=== PATIENT | male | born 1950 | race Caucasian/White ===

== ENCOUNTER → 2017-10-17 10:35 | Outpatient (CLI) | payer MEDICARE, OTHER, SELFPAY ==
[2017-10-17 12:21] LABS: Absolute Neutrophil Count 3.2 X10^3/uL (2.0-7.7); Basophil# 0.11 X10^3/uL; Basophil% 1.4 % (0-1); Eosinophils% 4.9 % (0-5); Hematocrit 45.7 % (40-54); Hemoglobin 15.2 g/dl (13.0-16.5); Lymphocyte % 46.8 % (19-41); Mean Corp Hgb Conc 33.3 g/gl (32-36); Mean Corpuscular Hgb 28.5 pg (27.0-32.0); Mean Corpuscular Volume 85.7 fL (80-94); Mean Platelet Vol. 10.3 fl (6.2-12.0); Monocyte# 0.51 X10^3/uL; Monocyte% 6.3 % (0-10); Neutrophil # 3.24 X10^3/uL (2.7-7.7); Neutrophil % 39.9 % (47-70); Platelet Count 244 K/mm3 (150-450); RBC Distribution Width CV 14.2 % (11.6-14.6); RBC Distribution Width SD 44.6 fl (35.1-43.9); Red Blood Count 5.33 M/mm3 (4.6-6.2); White Blood Count 8.1 K/mm3 (4.4-11.0)
[2017-10-17 12:22] LABS: Absolute Nucleated RBC Count 0.17 10^3/uL (0-5); POSITIVE COUNT NO; POSITIVE DIFFERENTIAL NO; POSITIVE MORPHOLOGY NO
[2017-10-17 12:47] LABS: ALB/GLOB Ratio 1.2 RATIO (0.9-2.4); AST(SGOT) 22 U/L (15-37); Alanine Aminotransfer ALT/SGPT 37 U/L (16-61); Albumin, Serum 4.2 g/dL (3.2-5.0); Alkaline Phosphatase 85 U/L (45-117); Anion Gap 8 (5-15); BUN 21 mg/dL (7-18); BUN/Creat Ratio 15.4 RATIO (10-20); Calcium,Total 10.1 mg/dL (8.5-10.1); Chloride 104 mmol/L (98-107); Creatinine, Serum 1.36 mg/dL (0.70-1.30); EST Glomerular Filtration Rate 56 mL/min (>60); Est Glom Filt Rate - Afr Amer 68 mL/min (>60); Globulin 3.4 g/dL (2.2-4.2); Glucose 97 mg/dL (74-106); Potassium 3.7 mmol/L (3.5-5.1); Protein, Total 7.6 g/dL (6.4-8.2); Sodium Level 139 mmol/L (136-145)
== END ==
PROVIDERS: Visit Provider Psychiatry & Neurology Neurology
DX: G35 Multiple sclerosis (principal); Z79.899 Other long term (current) drug therapy
CPT/HCPCS: 36415; 80053; 85025; 87798

== ENCOUNTER 2021-05-04 11:54 | Inpatient (IN) | payer MEDICARE, OTHER, SELFPAY ==
[2021-05-04] VITALS (7 sets, daily range): BP systolic 100–139; BP diastolic 68–79; PULSE 79–90; RESP 18–20; TEMP 36.1–37.6; O2SAT 92–96; BMI 35.2; BMI 33.0
--- NOTE | 2021-05-04 12:57 | EKG12_ITS ---
Test Reason : CONFUSON Blood Pressure : / mmHG Vent. Rate : 086 BPM Atrial Rate : 086 BPM P-R Int : 184 ms QRS Dur : 102 ms QT Int : 362 ms P-R-T Axes : 072 044 062 degrees QTc Int : 433 ms Normal sinus rhythm Normal ECG Confirmed by SAIRA BAKER, CANDACE ([id number]), market editor ROBBIE GAYTAN ([id number]) on 05/06/2021 11:10:22 AM Referred By: NATACHA Confirmed By:CANDACE CHÁVEZ MD
--- NOTE | 2021-05-04 12:58 | CT_ITS ---
STUDY: CT BRAIN WITHOUT CONTRAST REASON FOR EXAM: Male, 71 years old. Confusion, ataxia RADIATION DOSAGE (If Supplied By Facility): CTDIvol = ( 44.99 ) mGy, DLP = ( 880.47 ) mGycm TECHNIQUE: Transaxial CT imaging of the brain was performed without administration of intravenous contrast material. Individualized dose optimization techniques were used for this CT. COMPARISON: No relevant priors. FINDINGS: Normal soft tissue structures. Normal calvarium. There is mild cerebral atrophy with widening of the extra-axial spaces and ventricular dilatation. There are areas of decreased attenuation within the white matter tracts of the supratentorial brain, consistent with microvascular disease changes. Normal basal ganglia and thalami. Normal brainstem. Normal cerebellum. There is no intracranial hemorrhage. There are no findings of an acute ischemic infarction. Atherosclerotic calcification of the cavernous portions of the internal carotid arteries bilaterally. Mucosal thickening of the maxillary sinuses. Partial opacification of the ethmoid sinus. CT/Brain/Head without Contrast IMPRESSION: Chronic involutional changes of the brain. Sinusitis. Electronically Signed: Lan Weber MD at 14:07 EST , Service support ,
--- NOTE | 2021-05-04 12:59 | EDS_ITS ---
HPI History of Present Illness Chief Complaint: Confusion Onset/Context/Timing Onset: Today Context: - (noticed since he woke up) Timing: Continuous Quality: disoriented/confused Current Severity: Severe Maximum Severity: Severe Worsened by: n/a Relieved by: n/a Narrative Narrative: Patient is on day #8 of Covid via home test that was positive. Symptoms have been significant fatigue, cough, and very poor appetite/p.o. intake; woke up this morning disoriented which is new. He has had several minor falls without injury because he has been off balance when walking, he has history of MS, and he rarely has flareups. He gets every 6 month infusions, his last one was 2 or 3 weeks ago, along with influenza and Covid booster shots, which made him start feeling off balance after that. Pulse ox 92% at home at the lowest which was this morning. [facility] Medical History (Updated 05/04/21 @ 16:[address] Segun Zazueta MD) HTN (hypertension) Multiple sclerosis Home Medications fluoxetine 20 mg PO DAILY 05/04/21 [History Last Taken Unknown] olmesartan-hydrochlorothiazide 1 tab PO DAILY 05/04/21 [History Last Taken Unknown] tamsulosin 0.4 mg PO DAILY 05/04/21 [History Last Taken Unknown] Allergy/AdvReac Type Severity Reaction Status Date / Time No Known Allergies Allergy Verified 05/04/21 11:54 Social History Smoking Status: Former smoker ROS ROS ED Review of Systems ROS Unobtainable: other Details: Limited due to confusion Constitutional Constitutional ED: Reports fatigue, fever(s) and malaise; Denies body ache(s) Eyes Eyes: Denies change in vision or diplopia ENT ENT ED: Reports nasal congestion; Denies rhinorrhea Cardiovascular Cardiovascular: Denies chest pain or palpitations Respiratory/Chest Respiratory/Chest: Reports cough; Denies dyspnea Gastrointestinal Gastrointestinal: Denies abdominal pain, diarrhea, nausea or vomiting Musculoskeletal Musculoskeletal: Denies back pain or neck pain Integumentary Denies abscess or rash Neurologic Neurologic: Reports as per HPI, confusion, lack of coordination and other Details: Patient cannot answer whether he has numbness, tingling, weakness anywhere focally ; Denies headache(s) Psychiatric Psychiatric: Denies anxiety or suicidal thoughts EXAM Physical Exam Const Vital Signs: 05/04/21 11:56 05/04/21 13:00 05/04/21 14:00 Temperature 97.0 F L 98.1 F 98 F Temperature Source Temporal Temporal Temporal Pulse Rate 90 87 81 Respiratory Rate 20 H 19 H 20 H Blood Pressure 100/73 139/74 H 133/74 H Blood Pressure Mean 82 95 93 Pulse Ox 92 96 95 Oxygen Delivery Method Room Air Room Air Room Air 05/04/21 15:00 Temperature 98 F Temperature Source Oral Pulse Rate 79 Respiratory Rate 18 Blood Pressure 123/78 H Blood Pressure Mean 93 Pulse Ox 96 Oxygen Delivery Method Room Air Positive well nourished and well developed General Appearance ED: well developed and NAD HEENT Reports moist mucous membranes normocephalic and atraumatic Eyes PERRL and EOMs intact bilaterally Neck full ROM, no lymphadenopathy, supple and no meningeal signs Resp normal respiratory effort and clear to auscultation bilaterally Cardio regular rate, regular rhythm and no murmurs Rate: Negative for tachycardic GI non-tender and non-distended Auscultation: normoactive bowel sounds Palpation: soft Back/Spine no CVA tenderness General Back: other FROM Extremity normal to inspection General Extremety ED: Negative for edema, pulses abnormal or tenderness General Extremity: Negative for edema or pulses abnormal Neuro CN's II-XII intact bilaterally and no focal motor deficits Neuro Narrative: When actively performing sensory exam bilaterally simultaneously, patient cannot answer whether it feels symmetric or not at many sensory levels. Normal [id number] and [id number] bilaterally within limit s of exam, patient is generally weak but has no focal motor deficits. Sensorium / Orientation: awake, alert, oriented to person and orientation impaired Motor Exam: strength 5/5 throughout Skin no rashes or lesions noted and no wounds MDM MDM MDM Narrative Medical decision making narrative: Patient's Covid test did return positive. Other than mild dehydration and a nonspecifically elevated lactate, testing does not explain his disorientation/delirium. His oxygen levels are good and his other vital signs are stable and unremarkable. He was hydrated here with a liter of fluid. Afterwards he said that he felt a little better, however he was so weak that she was not even able to stand at the bedside and still confused. Lab Data Attestation: I reviewed the patient's lab results. Labs: Laboratory Results - last 24 hr 01/04/22 01/04/22 01/04/22 13:33 13:33 13:33 WBC 4.2 L RBC 5.66 Hgb 16.2 Hct 48.6 MCV 85.9 MCH 28.6 MCHC 33.3 RDW Std Deviation 41.0 RDW Coeff of Earlene 13.0 Plt Count 218 MPV 10.3 Immature Gran % (Auto) 0.700 Neut % (Auto) 76.6 H Lymph % (Auto) 12.2 L Drew % (Auto) 10.3 H Eos % (Auto) 0.0 Baso % (Auto) 0.2 Absolute Neuts (auto) 3.2 Absolute Lymphs (auto) 0.51 L Nucleated RBC % 0 Differential Comment COMMENT Diff Path Review May foll Sodium 135 L Potassium 3.4 L Chloride 95 L Carbon Dioxide 28.0 Anion Gap 12 BUN 25 H Creatinine 1.51 H Estim Creat Clear Calc 47.67 Est GFR (MDRD) Af Amer 59 L Est GFR (MDRD) Non-Af 49 L BUN/Creatinine Ratio 16.6 Glucose 102 Lactic Acid 2.7 H* Calcium 10.3 H Total Bilirubin 0.50 AST 37 ALT 35 Alkaline Phosphatase 65 Troponin I High Sens 10 Total Protein 7.8 Albumin 3.7 Globulin 4.1 Albumin/Globulin Ratio 0.9 Urine Color Urine Clarity Urine pH Ur Specific [place] Urine Protein Urine Glucose (UA) Urine Ketones Urine Occult Blood Urine Nitrite Urine Bilirubin Urine Urobilinogen Ur Leukocyte Esterase Urine RBC Urine WBC Ur Squamous Epith Cells Urine Bacteria Urine Mucus 05/04/21 13:50 WBC RBC Hgb Hct MCV MCH MCHC RDW Std Deviation RDW Coeff of Earlene Plt Count MPV Immature Gran % (Auto) Neut % (Auto) Lymph % (Auto) Drew % (Auto) Eos % (Auto) Baso % (Auto) Absolute Neuts (auto) Absolute Lymphs (auto) Nucleated RBC % Differential Comment Diff Path Review Sodium Potassium Chloride Carbon Dioxide Anion Gap BUN Creatinine Estim Creat Clear Calc Est GFR (MDRD) Af Amer Est GFR (MDRD) Non-Af BUN/Creatinine Ratio Glucose Lactic Acid Calcium Total Bilirubin AST ALT Alkaline Phosphatase Troponin I High Sens Total Protein Albumin Globulin Albumin/Globulin Ratio Urine Color Yellow Urine Clarity Clear Urine pH 5.0 Ur Specific [place] 1.025 Urine Protein 30 H Urine Glucose (UA) Normal Urine Ketones 5 H Urine Occult Blood 10 H Urine Nitrite Negative Urine Bilirubin Negative Urine Urobilinogen Normal Ur Leukocyte Esterase Negative Urine RBC 0 SEEN Urine WBC 0 SEEN Ur Squamous Epith Cells 0 SEEN Urine Bacteria 0 SEEN Urine Mucus 0 SEEN Radiography Diagnostic Testing: Clinical Impression(s) from Imaging Studies Brain CT 05/04/21 12:58 IMPRESSION: Chronic involutional changes of the brain. Sinusitis. Electronically Signed: Lan Weber MD at 14:07 EST , Service support , Chest X-Ray 05/04/21 13:55 IMPRESSION: Hyperinflation. No acute abnormality is seen. Electronically Signed: Lan Weber MD at 14:08 EST , Service support , EKG Initial EKG: Attestation: I personally reviewed and interpreted this EKG as follows: Interpretation: Sinus Rhythm and No Acute Injury Pattern Discharge Plan Dx/Rx/DC Orders Clinical Impression: COVID-19, Dehydration, Delirium, Declining functional status Disposition Disposition: Acute Care [facility]
[2021-05-04] MEDS: 0.9% Normal Saline 1,000 ML 999 ML IV (13:39)
[2021-05-04 13:50] LABS: Absolute Lymphocyte Count 0.51 X10^3/uL (0.83-4.51); Absolute Neutrophil Count 3.2 X10^3/uL (2.0-7.7); Basophil# 0.01 X10^3/uL; Basophil% 0.2 % (0-1); Hematocrit 48.6 % (40-54); Hemoglobin 16.2 g/dL (13.0-16.5); Lymphocyte # 0.51 X10^3/ul (0.83-4.51); Lymphocyte % 12.2 % (19-41); Mean Corp Hgb Conc 33.3 g/dL (32-36); Mean Corpuscular Hgb 28.6 pg (27.0-32.0); Mean Corpuscular Volume 85.9 fL (80-94); Mean Platelet Vol. 10.3 fl (6.2-12.0); Monocyte# 0.43 X10^3/uL; Monocyte% 10.3 % (0-10); NRBC Flagged by Analyzer 0 % (0-5); Neutrophil # 3.19 X10^3/uL (2.7-7.7); Neutrophil % 76.6 % (47-70); POSITIVE DIFFERENTIAL YES; Platelet Count 218 K/mm3 (150-450); Red Blood Count 5.66 M/mm3 (4.6-6.2); White Blood Count 4.2 K/mm3 (4.4-11.0)
--- NOTE | 2021-05-04 13:55 | RAD_ITS ---
STUDY: X-RAY CHEST REASON FOR EXAM: Male, 71 years old. Lethargy and confusion. TECHNIQUE: Single AP portable view of the chest. COMPARISON: None. FINDINGS: There is hyperinflation of the lungs consistent with chronic obstructive lung disease (COPD). There is no demonstrated pleural abnormality. Normal size heart. Normal mediastinum and cory. Normal visualized pulmonary arteries. There is atherosclerotic calcification of the aortic arch with tortuosity. There are degenerative changes of the visualized thoracic spine. Normal visualized ribs, clavicles, and shoulders. There is no demonstrated abnormality of the visualized soft tissue structures of the upper abdomen. RAD/Chest 1 View (Portable) IMPRESSION: Hyperinflation. No acute abnormality is seen. Electronically Signed: Lan Weber MD at 14:08 EST , Service support ,
[2021-05-04 13:57] LABS: Bacteria 0 SEEN /hpf (None Seen); Mucous, Urine 0 SEEN /hpf (<or=2+); Red Blood Cells-Urine 0 SEEN /hpf (0-5); Squamous Epithelial Cells - UA 0 SEEN /hpf (0-5); White Blood Cells 0 SEEN /hpf (0-5)
[2021-05-04 14:01] LABS: Differential Indicated SCAN CRITERIA MET
[2021-05-04 14:08] LABS: ALB/GLOB Ratio 0.9 RATIO (0.9-2.4); AST(SGOT) 37 U/L (15-37); Alanine Aminotransfer ALT/SGPT 35 U/L (16-61); Albumin, Serum 3.7 g/dL (3.2-5.0); Alkaline Phosphatase 65 U/L (45-117); Anion Gap 12 (5-15); BUN 25 mg/dL (7-18); BUN/Creat Ratio 16.6 RATIO (10-20); Calcium,Total 10.3 mg/dL (8.5-10.1); Chloride 95 mmol/L (98-107); Creatinine, Serum 1.51 mg/dL (0.70-1.30); EST Glomerular Filtration Rate 49 mL/min (>60); Est Glom Filt Rate - Afr Amer 59 mL/min (>60); Estimated Creatinine Clearance 47.67 ml/min; Globulin 4.1 g/dL (2.2-4.2); Glucose 102 mg/dL (74-106); Potassium 3.4 mmol/L (3.5-5.1); Protein, Total 7.8 g/dL (6.4-8.2); Sodium Level 135 mmol/L (136-145); Troponin-I HS 10 pg/mL (3.0-78.0)
[2021-05-04 14:11] LABS: Color, Urine Yellow (Yellow); Glucose, Dipstick Normal (Normal); Ketone-Dipstick 5 mg/dl (Negative); Leukocyte Esterase-Dipstick Negative /ul (Negative); Nitrite-Dipstick Negative (Negative); Occult Blood-Urine 10 /ul (Negative); Protein-Dipstick 30 mg/dl (Negative); Specific Gravity, Urine 1.025 (1.002-1.030); Urine Bilirubin Dipstick Negative (Negative); Urine Clarity Clear (Clear); Urine Urobilinogen Normal (Normal)
[2021-05-04 14:26] LABS: Lactic Acid 2.7 mmol/L (0.4-1.9)
--- NOTE | 2021-05-04 16:18 | ED.RN ---
PT UNABLE TO AMBULATE, VERY UNSTEADY. ALSO HAS DIFFICULTY FOLLOWING SIMPLE COMMANDS.
--- NOTE | 2021-05-04 17:37 | PCM.HP.STD ---
HPI - General General Date of Admission: 05/04/21 HPI Narrative ROMEO HANDY, is a 71 M who presents with confusion. Patient has a history of multiple sclerosis and is been feeling sick for about a week. Patient had known contact with someone at a [employer] green party who later tested positive for COVID-19. He subsequent was tested positive for COVID-19. Since then he has just been weak and then more recently has been confused and delirious. He was also very weak today as well. His was concerned and brought into the emergency room. Patient work-up in the emergency room clued head CT as well as chest x-ray that was unremarkable. Lab work significant only for lactic acid of 2.7 and a creatinine of 1.5. Patient did receive IV fluids. The hospital service was contacted for admission. Patient has been vaccinated for COVID-19 and did have his booster. Patient does take Ocrevus for MS every 6 months and took that shortly before his booster shot. Patient was so confused today he did not know his own name. [facility] Medical History HTN (hypertension) Multiple sclerosis Home Medications fluoxetine 20 mg PO DAILY 05/04/21 [History Last Taken Unknown] olmesartan-hydrochlorothiazide 1 tab PO DAILY 05/04/21 [History Last Taken Unknown] tamsulosin 0.4 mg PO DAILY 05/04/21 [History Last Taken Unknown] Allergy/AdvReac Type Severity Reaction Status Date / Time No Known Allergies Allergy Verified 05/04/21 11:54 Social History Smoking Status: Former smoker ROS ROS Narrative Unable to get satisfactory family social history due to his confusion Review of Systems ROS Unobtainable: due to encephalopathy Vital Signs Vital Signs Vital Signs: 05/04/21 11:56 05/04/21 13:00 05/04/21 14:00 Temperature 36.1 C L 36.7 C 36.6 C Temperature Source Temporal Temporal Temporal Pulse Rate 90 87 81 Respiratory Rate 20 H 19 H 20 H Blood Pressure 100/73 139/74 H 133/74 H Blood Pressure Mean 82 95 93 Pulse Ox 92 96 95 Oxygen Delivery Method Room Air Room Air Room Air 05/04/21 15:00 05/04/21 16:51 Temperature 36.6 C 36.6 C Temperature Source Oral Temporal Pulse Rate 79 90 Respiratory Rate 18 19 H Blood Pressure 123/78 H 122/77 H Blood Pressure Mean 93 92 Pulse Ox 96 96 Oxygen Delivery Method Room Air Room Air Weight Weight: 111.13 kg Body Mass Index (BMI) 35.2 Physical Exam Const Constitutional Narrative: Follows commands. Oriented to self. Place is [place] knew the year but did not know the month. HEENT normocephalic and head/scalp atraumatic Eyes PERRL and EOMs intact bilaterally Eyes Narrative: No scleral icterus Neck no lymphadenopathy Neck Narrative: No thyromegaly Resp normal respiratory effort, no retractions, no use of accessory muscles and clear to auscultation bilaterally Cardio regular rate, regular rhythm, S1 normal heart sound and S2 normal heart sound GI normal to inspection, nondistended, normoactive bowel sounds, soft to palpation, non-tender and non-distended Extremity normal to inspection and full ROM Skin no rashes or lesions noted and no wounds Neuro CN's II-XII intact bilaterally, moves all extremities and no focal motor deficits Sensorium / Orientation: oriented to person; Negative for oriented to place or oriented to time Results Lab / Micro Data Attestation: I reviewed the patient's lab results. Result Diagrams: 05/04/21 13:33 05/04/21 13:33 Labs: Laboratory Results - last 24 hr 05/04/21 13:33: WBC 4.2 L, RBC 5.66, Hgb 16.2, Hct 48.6, MCV 85.9, MCH 28.6, MCHC 33.3, RDW Std Deviation 41.0, RDW Coeff of Earlene 13.0, Plt Count 218, MPV 10.3, Immature Gran % (Auto) 0.700, Neut % (Auto) 76.6 H, Lymph % (Auto) 12.2 L, [place] % (Auto) 10.3 H, Eos % (Auto) 0.0, Baso % (Auto) 0.2, Absolute Neuts (auto) 3.2, Absolute Lymphs (auto) 0.51 L, Nucleated RBC % 0, Differential Comment COMMENT, Diff Path Review August foll 05/04/21 13:33: Sodium 135 L, Potassium 3.4 L, Chloride 95 L, Carbon Dioxide 28.0, Anion Gap 12, BUN 25 H, Creatinine 1.51 H, Estim Creat Clear Calc 47.67, Est GFR (MDRD) Af Amer 59 L, Est GFR (MDRD) Non-Af 49 L, BUN/Creatinine Ratio 16.6, Glucose 102, Calcium 10.3 H, Total Bilirubin 0.50, AST 37, ALT 35, Alkaline Phosphatase 65, Troponin I High Sens 10, Total Protein 7.8, Albumin 3.7, Globulin 4.1, Albumin/Globulin Ratio 0.9 05/04/21 13:33: Lactic Acid 2.7 H* 05/04/21 13:50: Urine Color Yellow, Urine Clarity Clear, Urine pH 5.0, Ur Specific [place] 1.025, Urine Protein 30 H, Urine Glucose (UA) Normal, Urine Ketones 5 H, Urine Occult Blood 10 H, Urine Nitrite Negative, Urine Bilirubin Negative, Urine Urobilinogen Normal, Ur Leukocyte Esterase Negative, Urine RBC 0 SEEN, Urine WBC 0 SEEN, Ur Squamous Epith Cells 0 SEEN, Urine Bacteria 0 SEEN, Urine Mucus 0 SEEN Micro: Microbiology 05/04/21 13:20 Nasal Secretion SARS-CoV-2 Antigen (Rapid) - Final SARS-CoV-2 (COVID 19) Radiology Impression Brain CT 05/04/21 12:58 IMPRESSION: Chronic involutional changes of the brain. Sinusitis. Electronically Signed: Lan Weber MD at 14:07 EST , Service support , Chest X-Ray 05/04/21 13:55 IMPRESSION: Hyperinflation. No acute abnormality is seen. Electronically Signed: Lan Weber MD at 14:08 EST , Service support , Assessment & Plan Assessment/Plan (1) COVID-19: (2) Dehydration: (3) Delirium: PLAN: 1. Acute delirium Likely multifactorial: Due to the patient's underlying MS plus to being dehydrated as well as ayanna COVID-19. On any potentiating medications Give patient additional fluids Check an MRI of the brain to make sure there is no new demyelinating lesions. Infectious work-up thus far has been unremarkable. 2. Acute COVID-19 Onset of symptoms was April 26 Patient is not hypoxic and other than his confusion and some general malaise is otherwise asymptomatic No indication for steroids at this point nor remdesivir given that he is not hypoxic. May reconsider initiating his medications if patient respiratory status worsens Patient has been vaccinated and has had his booster. 3. Dehydration Creatinine up a little bit from 2018. Cannot qualify this is acute kidney injury. Get patient on her liter of IV fluids 4. Lactic acidosis Unclear significance Patient clinically not septic at this time 5. VTE prophylaxis Lovenox 6. Debility: PT OT evaluate and treat Patient may require long-term facility at discharge. Patient's was inquiring about getting home health care services. Told her that we can have home health care but if he does require more therapy services and that would be hiring aids which would be [id number] expenses. Charges/Coding Visit Charges Inpatient E&M: 85991 Init Hosp L3
[2021-05-04 17:46] LABS: Reflex Lactate? Y
--- NOTE | 2021-05-04 17:54 | MRI_ITS ---
STUDY: MRI BRAIN WITH AND WITHOUT CONTRAST REASON FOR EXAM: Male, 71 years old. delirium. -- history of MS. TECHNIQUE: Standardized multiplanar fat and water weighted pulse sequences were obtained. IV 20cc dotarem was administered for the contrast portion of the examination. COMPARISON: 12/02/2016 FINDINGS: Examination is degraded by motion artifact. There is moderate cerebral atrophy with widening of the extra-axial spaces and ventricular dilatation. There are periventricular and subcortical white matter hyperintensities without evidence of restricted diffusion are enhancement to suggest active demyelination. Right midbrain and pontine lesions are noted as well. There is mild thinning of the corpus callosum. There are greater than 5 lesions associated with demyelinating vacuolization burned-out plaque. Normal bilateral basal ganglia. Normal thalami. There is no extra-axial fluid accumulation. There is no enhancing intra-axial or extra-axial abnormality. Normal sella turcica, pituitary gland, infundibular stalk, optic chiasm and hypothalamus. Normal tectal plate and pineal gland. MRI/Brain W/WO Contrast IMPRESSION: No acute intracranial abnormality. Moderate supratentorial and infratentorial plaque. Electronically Signed: Silvia Hernandez MD at 15:02 EST Tel , Service support ,
[2021-05-04] MEDS: 0.9% Normal Saline 1,000 ML 150 ML IV (18:33)
--- NOTE | 2021-05-04 18:43 | NURSING ---
Addendum entered by Ladonna Hernandez 05/05/21 17:49: Brea reports that pt has not gotten flu vaccine this year and does not want pt to get at this time Original Note: is not sure if pt recieved flu shot this year, states to check with pt PCP office, Adria Granger at [facility] [phone]. please follow up on 05/05
--- NOTE | 2021-05-04 18:51 | PCS.PANDOC ---
PANDEMIC DOCUMENTATION INITIATED: Date: 12/14/2020 Time: 190
[2021-05-04] MEDS: 0.9% Saline Lock 10 ML Syringe IV (20:43)
[2021-05-05] VITALS (10 sets, daily range): BP systolic 104–135; BP diastolic 58–74; PULSE 77–92; RESP 16–18; TEMP 37.1–37.8; O2SAT 88–95
[2021-05-05 07:16] LABS: Absolute Lymphocyte Count 0.66 X10^3/uL (0.83-4.51); Absolute Neutrophil Count 2.6 X10^3/uL (2.0-7.7); Basophil# 0.01 X10^3/uL; Basophil% 0.3 % (0-1); Eosinophil# 0.01 X10^3/uL; Eosinophils% 0.3 % (0-5); Hemoglobin 14.1 g/dL (13.0-16.5); Lymphocyte # 0.66 X10^3/ul (0.83-4.51); Lymphocyte % 17.4 % (19-41); Mean Corp Hgb Conc 33.6 g/dL (32-36); Mean Corpuscular Hgb 28.7 pg (27.0-32.0); Mean Corpuscular Volume 85.5 fL (80-94); Mean Platelet Vol. 10.5 fl (6.2-12.0); Monocyte# 0.55 X10^3/uL; Monocyte% 14.5 % (0-10); NRBC Flagged by Analyzer 0 % (0-5); Neutrophil # 2.55 X10^3/uL (2.7-7.7); Platelet Count 199 K/mm3 (150-450); RBC Distribution Width CV 13.2 % (11.6-14.6); Red Blood Count 4.91 M/mm3 (4.6-6.2); White Blood Count 3.8 K/mm3 (4.4-11.0)
[2021-05-05 07:37] LABS: ALB/GLOB Ratio 0.8 RATIO (0.9-2.4); AST(SGOT) 34 U/L (15-37); Alanine Aminotransfer ALT/SGPT 28 U/L (16-61); Alkaline Phosphatase 55 U/L (45-117); Anion Gap 9 (5-15); BUN 21 mg/dL (7-18); BUN/Creat Ratio 16.8 RATIO (10-20); Calcium,Total 9.5 mg/dL (8.5-10.1); Chloride 101 mmol/L (98-107); Creatinine, Serum 1.25 mg/dL (0.70-1.30); EST Glomerular Filtration Rate 61 mL/min (>60); Est Glom Filt Rate - Afr Amer 74 mL/min (>60); Estimated Creatinine Clearance 57.59 ml/min; Globulin 3.6 g/dL (2.2-4.2); Glucose 98 mg/dL (74-106); Potassium 3.7 mmol/L (3.5-5.1); Protein, Total 6.6 g/dL (6.4-8.2); Sodium Level 135 mmol/L (136-145)
--- NOTE | 2021-05-05 10:02 | CASEMGMT ---
ANNE-MARIE BARBA in to pt room to complete assessment. Pt sitting up in chair on RA in no distress. Pt oriented to self only. Pt agreeable to calling to complete assessment. ANNE-MARIE BARBA to call .
[2021-05-05] MEDS: Enoxaparin 40 MG/0.4 ML Syringe SC (10:19)
[2021-05-05] MEDS: FLUoxetine 20 MG Capsule PO (10:19)
[2021-05-05] MEDS: Tamsulosin HCl 0.4 MG Capsule PO (10:19)
[2021-05-05] MEDS: hydroCHLOROthiazide 12.5mg 12.5 MG PO (10:19)
--- NOTE | 2021-05-05 11:18 | CASEMGMT ---
ANNE-MARIE BARBA Assessment: TC to pt for initial transition planning/care coordination assessment. RN FREDA introduced self and role at [facility], pt voices understanding and consents to assessment. Care providers, pharmacy, and demographics verified/updated. Admitting Dx: COVID 19, debility PCP:Adria Lucio Specialists:Elida uro; Stewart, eye Dr; Nils, neuro [facility]erred [facility]acy[facility] Insurance: [employer], Commercial other Prescription Benefit: yes LW/HPOA: Pt will check. She is not sure if they have a LW/DPOA. LNOK: Brea Boswell, Living Arrangements: Pt lives with in a two story house with 8 steps that are rocks to enter. states they live [place] a hill. There are rails to use. She states pt normally is I in ADL's but not now. She states pt is able to make meals, do laundry and go up and down steps normally. Transportation: Pt drives self locally but not at night. Pt transports pt to medical appts. DME/HHC/SNF: Pt has a CPAP at home, pulse ox and cane that he uses once in awhile. Pt also has a walker available. Pt denies hx of HHC and SNF stays. Pt was tested for COVID at [facility]. Pt is negative. Pt states she has already checked with [facility] for bed availability and acceptance of her . She states this is where she would like him to go and denies need for a list of facilities with star ratings. Pt states no further concerns/needs. CM to follow. Advised pt to ask CM if any further question/concerns/needs arise, voices understanding. Pt Goal: [facility], second choice [facility] Plan: SNF
--- NOTE | 2021-05-05 12:14 | CASEMGMT ---
Addendum entered by Beatriz Acosta 05/05/21 13:47: Social Work SW did fax referral over to [facility], sent an email letting Lisseth know the referral is coming. SW called to let her know that SW did call all of the other facilities in and near [place] and none are taking COVID patients, so a referral was sent to [facility]. states understanding. SW will keep her informed as to whether or not pt is accepted. GRACE Dawson Original Note: Social Work As per , pt will need SNF, and [facility] is 's first choice. SW called [facility], pt's positive COVID test here is dated 05/04/21. If pt has another positive test from a facility in the community, then they can use that test. SW called , pt used a home test and was positive on that, did not have a test in the community. SW explained that unfortunately, [facility] will not be able to take pt. SW explained to the only facility in the area taking positive COVID patients is [facility]. asked about the other facilities in [place]. SW explained will call to see if any will accept COVID positive pts. If they will not, is okay with a referral to [facility]. SW called [place], [facility], and [facility], none will take positive COVID patients. SW will send a referral to [facility] later today, PT/OT are still pending. GRACE Dawson
[2021-05-05] MEDS: LORazepam 1 MG Tablet PO (12:36)
[2021-05-05 13:28] LABS: Pathologist Review Reviewed
[2021-05-05] MEDS: Losartan Potassium 100 MG Tablet PO (15:26)
--- NOTE | 2021-05-05 18:12 | PCM.PN.HOSP ---
Subjective Subjective Patient denies any acute issues at this time. He unfortunately has required the addition of supplemental oxygen and is currently on 2 L with oxygen saturations in the mid nineties on supplemental oxygen. He did drop into the upper eighties on room air. Per discussion with nursing he has been confused but pleasant and oriented to self. Objective Data Objective Data Vital Signs: Vital Signs Temp Pulse Resp BP Pulse Ox 99.3 F H 80 16 133/65 H 89 05/05/21 15:30 05/05/21 15:30 05/05/21 15:30 05/05/21 15:30 05/05/21 17:19 Oxygen Flow Rate (L/min) 2 Oxygen Delivery Method Room Air Weight: 104.281 kg Body Mass Index (BMI) 33.0 Intake & Output: Intake and Output for Last 24 Hours 05/03/21 05/04/21 05/05/21 23:59 23:59 23:59 Intake Total 1000 / 1000 1000 / 1000 Balance 1000 / 1000 1000 / 1000 Lab / Micro Data Result Diagrams: 05/05/21 05:54 05/05/21 05:51 Labs: Laboratory Results - last 24 hr 05/04/21 13:33: Diff Path Review Reviewed 05/04/21 19:45: Lactic Acid 1.0 05/05/21 05:51: Sodium 135 L, Potassium 3.7, Chloride 101, Carbon Dioxide 25.0, Anion Gap 9, BUN 21 H, Creatinine 1.25, Estim Creat Clear Calc 57.59, Est GFR (MDRD) Af Amer 74, Est GFR (MDRD) Non-Af 61, BUN/Creatinine Ratio 16.8, Glucose 98, Calcium 9.5, Total Bilirubin 0.50, AST 34, ALT 28, Alkaline Phosphatase 55, Total Protein 6.6, Albumin 3.0 L, Globulin 3.6, Albumin/Globulin Ratio 0.8 L 05/05/21 05:54: WBC 3.8 L, RBC 4.91, Hgb 14.1, Hct 42.0, MCV 85.5, MCH 28.7, MCHC 33.6, RDW Std Deviation 41.0, RDW Coeff of Earlene 13.2, Plt Count 199, MPV 10.5, Immature Gran % (Auto) 0.500, Neut % (Auto) 67.0, Lymph % (Auto) 17.4 L, [place] % (Auto) 14.5 H, Eos % (Auto) 0.3, Baso % (Auto) 0.3, Absolute Neuts (auto) 2.6, Absolute Lymphs (auto) 0.66 L, Nucleated RBC % 0 Micro: Microbiology 05/04/21 13:20 Nasal Secretion SARS-CoV-2 Antigen (Rapid) - Final SARS-CoV-2 (COVID 19) Radiography Diagnostic Testing: Radiology Impression Brain MRI 05/04/21 17:54 IMPRESSION: No acute intracranial abnormality. Moderate supratentorial and infratentorial plaque. Electronically Signed: Silvia Hernandez MD at 15:02 EST Tel , Service support , Physical Exam Const alert, no apparent distress and well nourished Constitutional Narrative: Obese upper middle-aged white male sitting up in a chair at the bedside, appears comfortable, nontoxic, no signs of extremis or distress, confused but cooperative Orientation / Consciousness: confused and disoriented Exam Limitations: altered mental status Nutritional Appearance: obese HEENT head/scalp atraumatic, moist oral mucous membranes and oropharynx normal HEENT Narrative: Dentition is good, Mallampati is 3, no thrush Head and Scalp: normocephalic Resp normal respiratory effort, no retractions, no use of accessory muscles and clear to auscultation bilaterally Resp Narrative: Diffusely diminished with few crackles in bilateral bases that improved with deep breathing Auscultation: crackles; Negative for rales, rhonchi or wheezes Cardio regular rate, regular rhythm, S1 normal heart sound, S2 normal heart sound, no murmurs, no rub, no gallops, no clicks and no JVD GI normal to inspection, nondistended, normoactive bowel sounds, soft to palpation, non-tender and non-distended Extremity no clubbing, cyanosis or edema Peripheral Pulses: Yes pulses 2+ throughout Neuro CN's II-XII intact bilaterally, moves all extremities and no focal motor deficits Neuro Narrative: Generalized weakness noted, patient follows all commands but slow to respond, speech is slow and inconsistent however Sensorium / Orientation: awake and alert Psych Psych Narrative: Affect is somewhat flat Assessment & Plan Assessment/Plan (1) COVID-19: (2) Acute respiratory failure with hypoxia: (3) Dehydration: (4) Declining functional status: (5) Delirium: (6) Hyponatremia: PLAN: Acute hypoxic respiratory failure secondary to COVID-19 -Sats were stable on presentation but now patient is requiring 2 L nasal cannula with an oxygen saturation 88 and 89% -Start Decadron day 1 of 10 -Start remdesivir day 1 of 5 -Add I-S/Pep therapy -Mobilization as able -Prone lying as able -Continue to monitor closely for decompensation -Patient has been vaccinated and boosted however he is immunocompromised secondary to treatment with Ranjitus for MS which she takes every 6 months and took that shortly before his booster shot Dehydration -Improving -Baseline serum creatinine appears to be 1.2-1.3 -On admission serum creatinine was 1.5 -Hold any further IV fluids Mild hyponatremia -Serum sodium is 134 -We will continue to monitor -Likely due to acute Covid infection Delirium/declining functional status -Suspect related to acute COVID-19 infection -PT/OT consultations -Was performed to rule out any acute exacerbation of MS and no new lesions found Multiple sclerosis -Patient on Dr. Gerard at baseline -MRI was performed given confusion and weakness and showed no evidence of active demyelination but chronic plaques are noted and there were no other acute findings BPH -Continue Flomax Hypertension -Continue HCTZ/losartan Depression -Continue Prozac -Watch sodium closely DVT prophylaxis -40 mg Lovenox daily CODE STATUS -Full code verified on admission Charges/Coding Visit Charges Inpatient E&M: 22727 Subs Hosp L2
[2021-05-05] MEDS: 0.9% Saline Lock 10 ML Syringe IV (20:31)
[2021-05-05] MEDS: dexAMETHasone 4 MG Tablet 6 MG PO (20:31)
[2021-05-05] MEDS: Acetaminophen 325 MG Tablet 650 MG PO (20:38)
[2021-05-06] VITALS (7 sets, daily range): BP systolic 104–134; BP diastolic 62–82; PULSE 66–74; RESP 18; TEMP 36.6–36.9; O2SAT 93–95
[2021-05-06 06:56] LABS: Hematocrit 41.5 % (40-54); Hemoglobin 13.9 g/dL (13.0-16.5); Mean Corp Hgb Conc 33.5 g/dL (32-36); Mean Corpuscular Hgb 28.8 pg (27.0-32.0); Mean Corpuscular Volume 85.9 fL (80-94); Mean Platelet Vol. 10.2 fl (6.2-12.0); Platelet Count 206 K/mm3 (150-450); RBC Distribution Width CV 13.2 % (11.6-14.6); RBC Distribution Width SD 41.9 fl (35.1-43.9); Red Blood Count 4.83 M/mm3 (4.6-6.2); White Blood Count 2.5 K/mm3 (4.4-11.0)
[2021-05-06 07:31] LABS: ALB/GLOB Ratio 0.8 RATIO (0.9-2.4); AST(SGOT) 28 U/L (15-37); Alanine Aminotransfer ALT/SGPT 26 U/L (16-61); Albumin, Serum 2.8 g/dL (3.2-5.0); Alkaline Phosphatase 50 U/L (45-117); Anion Gap 8 (5-15); BUN 23 mg/dL (7-18); Calcium,Total 10.2 mg/dL (8.5-10.1); Chloride 102 mmol/L (98-107); Creatinine, Serum 1.21 mg/dL (0.70-1.30); EST Glomerular Filtration Rate 63 mL/min (>60); Est Glom Filt Rate - Afr Amer 77 mL/min (>60); Estimated Creatinine Clearance 59.49 ml/min; Globulin 3.7 g/dL (2.2-4.2); Glucose 151 mg/dL (74-106); Potassium 4.2 mmol/L (3.5-5.1); Protein, Total 6.5 g/dL (6.4-8.2); Sodium Level 136 mmol/L (136-145)
[2021-05-06] MEDS: Tamsulosin HCl 0.4 MG Capsule PO (08:49)
[2021-05-06] MEDS: FLUoxetine 20 MG Capsule PO (08:49)
[2021-05-06] MEDS: dexAMETHasone 4 MG Tablet 6 MG PO (08:49)
[2021-05-06] MEDS: Enoxaparin 40 MG/0.4 ML Syringe SC (08:49)
--- NOTE | 2021-05-06 10:07 | CASEMGMT ---
Addendum entered by Beatriz Acosta 05/06/21 11:53: SW did fax PT/OT to [facility]. GRACE Dawson Original Note: Social Work SW spoke w/pt's , let her know that pt was accepted at [facility] and they have a bed for pt when ready. She inquired if the home COVID test was good enough for pt's PCP to order medication for him, would it be good enough for the [facility] to count COVID days from the date of the home COVID test, which was the . SW explained that unfortunately no, they need a documented COVID test. She inquired if pt could have another COVID test here and if that was negative, would that work. SW explained that unfortunately, the nursing homes still go by the initial documented positive COVID test, and we don't usually retest. states understanding. is agreeable to [facility] for pt at discharge. SW did call [facility], confirmed that they do indeed need to go by a documented COVID test and cannot go by a home test. SW emailed Lisseth at [facility] to let her know that as per physician, pt is not ready for discharge yet today. GRACE Dawson
--- NOTE | 2021-05-06 14:02 | PN.HOSP_ITS ---
Subjective Subjective Patient is doing much better today. Delirium has resolved and he is alert and oriented x3. He denies any significant shortness of breath. He is having some intermittent cough with no sputum production. Objective Data Objective Data Vital Signs: Vital Signs Temp Pulse Resp BP Pulse Ox 98.2 F 70 18 134/62 H 93 05/06/21 13:09 05/06/21 13:09 05/06/21 13:09 05/06/21 13:09 05/06/21 13:09 Oxygen Flow Rate (L/min) 4 Oxygen Delivery Method Nasal Cannula Weight: 104.281 kg Body Mass Index (BMI) 33.0 Intake & Output: Intake and Output for Last 24 Hours 05/04/21 05/05/21 05/06/21 23:59 23:59 23:59 Intake Total 1000 / 1000 1550 / 1550 550 / 550 Output Total 0 / 0 Balance 1000 / 1000 1550 / 1550 550 / 550 Lab / Micro Data Result Diagrams: 05/06/21 06:10 05/06/21 06:10 Labs: Laboratory Results - last 24 hr 05/06/21 06:10: WBC 2.5 L, RBC 4.83, Hgb 13.9, Hct 41.5, MCV 85.9, MCH 28.8, MCHC 33.5, RDW Std Deviation 41.9, RDW Coeff of Earlene 13.2, Plt Count 206, MPV 10.2 05/06/21 06:10: Sodium 136, Potassium 4.2, Chloride 102, Carbon Dioxide 26.0, Anion Gap 8, BUN 23 H, Creatinine 1.21, Estim Creat Clear Calc 59.49, Est GFR (M DRD) Af Amer 77, Est GFR (MDRD) Non-Af 63, BUN/Creatinine Ratio 19.0, Glucose 151 H, Calcium 10.2 H, Total Bilirubin 0.40, AST 28, ALT 26, Alkaline Phosph atase 50, Total Protein 6.5, Albumin 2.8 L, Globulin 3.7, Albumin/Globulin Ratio 0.8 L Micro: Microbiology 05/04/21 14:20 Blood Culture (Wb) - Right Hand Blood Culture - Preliminary No growth in 48 hours. 05/04/21 13:33 Blood Culture (Wb) - Anticubital Right Blood Culture - Preliminary No growth in 48 hours. 05/04/21 13:20 Nasal Secretion SARS-CoV-2 Antigen (Rapid) - Final SARS-CoV-2 (COVID 19) Radiography Diagnostic Testing: Radiology Impression Brain MRI 05/04/21 17:54 IMPRESSION: No acute intracranial abnormality. Moderate supratentorial and infratentorial plaque. Electronically Signed: Silvia Hernandez MD at 15:02 EST Tel , Service support , Physical Exam Const alert, oriented x3, no apparent distress and well nourished Constitutional Narrative: Obese upper middle-aged white male sitting up in a chair at the bedside, Orientation / Consciousness: confused and disoriented Exam Limitations: no limitations Nutritional Appearance: obese HEENT normocephalic, head/scalp atraumatic, moist oral mucous membranes and oropharynx normal HEENT Narrative: Mallampati 3, no thrush Head and Scalp: normocephalic Resp normal respiratory effort, no retractions, no use of accessory muscles and clear to auscultation bilaterally Resp Narrative: Diffusely diminished but clear Auscultation: crackles; Negative for rales, rhonchi or wheezes Cardio regular rate, regular rhythm, S1 normal heart sound, S2 normal heart sound, no murmurs, no rub, no gallops, no clicks and no JVD GI normal to inspection, nondistended, normoactive bowel sounds, soft to palpation, non-tender and non-distended Extremity normal to inspection, full ROM and no clubbing, cyanosis or edema Peripheral Pulses: Yes pulses 2+ throughout Neuro oriented x3, CN's II-XII intact bilaterally, moves all extremities and no focal motor deficits Neuro Narrative: Mild generalized weakness, interaction or appropriate and speeded responses no normal Sensorium / Orientation: awake and alert Assessment & Plan Assessment/Plan (1) COVID-19: (2) Acute respiratory failure with hypoxia: (3) Dehydration: (4) Declining functional status: (5) Delirium: (6) Hyponatremia: PLAN: Acute hypoxic respiratory failure secondary to COVID-19 -Patient remains on 2 L nasal cannula with an SPO2 of 93 to 95% -Decadron day 2 of 10 -remdesivir day 2 of 5 -Continue I-S/Pep therapy -Mobilization as able -Prone lying as able -Continue to monitor closely for decompensation -Patient has been vaccinated and boosted however he is immunocompromised secondary to treatment with Ocrevus for MS which she takes every 6 months and took that shortly before his booster shot Dehydration -Resolved Mild hyponatremia -Resolved Delirium/declining functional status -Much improved and seems close to baseline -Suspect related to acute COVID-19 infection -PT/OT consultations -Was performed to rule out any acute exacerbation of MS and no new lesions found Multiple sclerosis -Patient on Dr. Gerard at baseline -MRI was performed given confusion and weakness and showed no evidence of active demyelination but chronic plaques are noted and there were no other acute findings BPH -Continue Flomax Hypertension -Continue HCTZ/losartan Depression -Continue Prozac -Watch sodium closely ELEANOR -Patient's brought CPAP in last evening -Order placed for use DVT prophylaxis -40 mg Lovenox daily CODE STATUS -Full code verified on admission updated with regards to current treatment plan and discharge plan. I did indicate that we would have therapy reevaluate him prior to discharge so would have a better idea of what his baseline function is. She does have concerns about bringing him home because functionally he was fairly weak and she states it is very difficult for her to help him. She was pleased with his progress and indicates that she feels his mental status is improved significantly in the last 24 hours as well. Charges/Coding Visit Charges Inpatient E&M: 92887 Subs Hosp L2
[2021-05-06] MEDS: 0.9% Saline Lock 10 ML Syringe IV (21:12)
[2021-05-07] VITALS (8 sets, daily range): BP systolic 129–141; BP diastolic 64–80; PULSE 62–70; RESP 16–18; TEMP 36.5–36.6; O2SAT 86–96
[2021-05-07 07:03] LABS: Hemoglobin 13.5 g/dL (13.0-16.5); Mean Corp Hgb Conc 33.8 g/dL (32-36); Mean Corpuscular Hgb 28.7 pg (27.0-32.0); Mean Corpuscular Volume 84.9 fL (80-94); Mean Platelet Vol. 10.4 fl (6.2-12.0); Platelet Count 222 K/mm3 (150-450); RBC Distribution Width CV 12.9 % (11.6-14.6); RBC Distribution Width SD 40.4 fl (35.1-43.9); Red Blood Count 4.71 M/mm3 (4.6-6.2); White Blood Count 4.3 K/mm3 (4.4-11.0)
[2021-05-07 07:41] LABS: ALB/GLOB Ratio 0.8 RATIO (0.9-2.4); AST(SGOT) 23 U/L (15-37); Alanine Aminotransfer ALT/SGPT 26 U/L (16-61); Albumin, Serum 2.7 g/dL (3.2-5.0); Alkaline Phosphatase 47 U/L (45-117); Anion Gap 6 (5-15); BUN 26 mg/dL (7-18); Calcium,Total 10.6 mg/dL (8.5-10.1); Chloride 105 mmol/L (98-107); Creatinine, Serum 1.13 mg/dL (0.70-1.30); EST Glomerular Filtration Rate 68 mL/min (>60); Est Glom Filt Rate - Afr Amer 83 mL/min (>60); Globulin 3.6 g/dL (2.2-4.2); Glucose 117 mg/dL (74-106); Potassium 3.7 mmol/L (3.5-5.1); Protein, Total 6.3 g/dL (6.4-8.2); Sodium Level 139 mmol/L (136-145)
[2021-05-07 08:35] LABS: PTHIN 73.3 pg/mL (18.4-80.1)
[2021-05-07] MEDS: Tamsulosin HCl 0.4 MG Capsule PO (08:50)
[2021-05-07] MEDS: FLUoxetine 20 MG Capsule PO (08:50)
[2021-05-07] MEDS: hydroCHLOROthiazide 12.5mg 12.5 MG PO (08:50)
[2021-05-07] MEDS: Losartan Potassium 100 MG Tablet PO (08:51)
[2021-05-07] MEDS: Enoxaparin 40 MG/0.4 ML Syringe SC (08:51)
[2021-05-07] MEDS: dexAMETHasone 4 MG Tablet 6 MG PO (08:51)
--- NOTE | 2021-05-07 09:11 | CASEMGMT ---
Addendum entered by Beatriz Acosta 05/07/21 11:06: Social Work SW spoke w/, let her know that [facility] can now take pt. in agreement with this and very glad pt can go there. SW explained will let know as soon as his SW knows, if pt can go today. GRACE Dawson Addendum entered by Beatriz Acosta 05/07/21 10:18: Social Work SW spoke w/Sheela from [facility], they can take pt whenever ready. SW called , she did not answer, SW will try her back later. GRACE Dawson Original Note: Social Work SW spoke w/Sheela from [facility]. She states they may be able to take pt if it is documented when pt's positive COVID test was. It is documented in the ER note, SW faxed the referral to Sheela for review. GRACE Dawson
[2021-05-07 10:41] LABS: Vitamin D,25 Hydroxy 76.5 ng/mL
--- NOTE | 2021-05-07 14:51 | CASEMGMT ---
Social Work SW spoke w/Sheela at [facility], they are not able to take pt on the weekend, so if pt cannot come today then he will have to wait until Monday. ISELA spoke w/Dr. Trevino, she states pt will need to be here through Monday. SW let Sheela know. SW also called pt's to let her know pt will be here until Monday. She states understanding. She states that she has pt's Living Will in an email, asked how to get it into his record. SW explained for her to email this SW the living will, she will do so. SW to follow up on Monday. GRACE Dawson
--- NOTE | 2021-05-07 17:31 | PCM.PN.HOSP ---
Subjective Subjective Patient remains on 2 L at rest but did require up titration to 3 L with ambulation. Given his tenuous course and his history we did discuss possible discharge but feel more comfortable if he week here for another 24 hours to monitor his oxygenation. Patient denies any issues overnight. He indicates he is feeling much better. He is concerned however about his family being aware of the plan. Objective Data Objective Data Vital Signs: Vital Signs Temp Pulse Resp BP Pulse Ox 97.9 F 62 18 129/64 H 96 05/07/21 15:54 05/07/21 15:54 05/07/21 15:54 05/07/21 15:54 05/07/21 15:54 Oxygen Flow Rate (L/min) [ 3 AMBULATING with Oxygen #2] Oxygen Flow Rate (L/min) [ 2 AMBULATING with Oxygen #1] Oxygen Flow Rate (L/min) [At 2 REST with Oxygen] Oxygen Flow Rate (L/min) [At 0 REST on Room Air] Oxygen Flow Rate (L/min) 2 Oxygen Delivery Method Nasal Cannula Weight: 104.281 kg Body Mass Index (BMI) 33.0 Intake & Output: Intake and Output for Last 24 Hours 05/05/21 05/06/21 05/07/21 23:59 23:59 23:59 Intake Total 1550 / 1550 1650 / 1650 1000 / 1000 Output Total 0 / 250 1000 / 1000 Balance 1550 / 1550 1650 / 1400 0 / 0 Lab / Micro Data Result Diagrams: 05/07/21 06:35 05/07/21 06:35 Labs: Laboratory Results - last 24 hr 05/07/21 06:35: WBC 4.3 L, RBC 4.71, Hgb 13.5, Hct 40.0, MCV 84.9, MCH 28.7, MCHC 33.8, RDW Std Deviation 40.4, RDW Coeff of Earlene 12.9, Plt Count 222, MPV 10.4 05/07/21 06:35: Sodium 139, Potassium 3.7, Chloride 105, Carbon Dioxide 28.0, Anion Gap 6, BUN 26 H, Creatinine 1.13, Estim Creat Clear Calc 63.70, Est GFR (MDRD) Af Amer 83, Est GFR (MDRD) Non-Af 68, BUN/Creatinine Ratio 23.0 H, Glucose 117 H, Calcium 10.6 H, Total Bilirubin 0.50, AST 23, ALT 26, Alkaline Phosphatase 47, Total Protein 6.3 L, Albumin 2.7 L, Globulin 3.6, Albumin/Globulin Ratio 0.8 L 05/07/21 06:35: PTH Intact 73.3 05/07/21 10:00: Vitamin D 25-Hydroxy 76.5 Micro: Microbiology 05/04/21 14:20 Blood Culture (Wb) - Right Hand Blood Culture - Preliminary No growth in 48 hours. 05/04/21 13:33 Blood Culture (Wb) - Anticubital Right Blood Culture - Preliminary No growth in 48 hours. 05/04/21 13:20 Nasal Secretion SARS-CoV-2 Antigen (Rapid) - Final SARS-CoV-2 (COVID 19) Physical Exam Const alert, oriented x3, no apparent distress and well nourished Constitutional Narrative: Obese upper middle-aged white male sitting up in a chair at the bedside, appears comfortable, nontoxic, mentation appears back to baseline Orientation / Consciousness: confused and disoriented Exam Limitations: no limitations Nutritional Appearance: obese HEENT normocephalic, head/scalp atraumatic, moist oral mucous membranes and oropharynx normal HEENT Narrative: Mallampati 3, no thrush Head and Scalp: normocephalic Eyes Eyes Narrative: No scleral icterus Neck Neck Narrative: No thyromegaly Resp normal respiratory effort, no retractions, no use of accessory muscles and clear to auscultation bilaterally Resp Narrative: Diffusely diminished but clear Auscultation: crackles; Negative for rales, rhonchi or wheezes Cardio regular rate, regular rhythm, S1 normal heart sound, S2 normal heart sound, no murmurs, no rub, no gallops, no clicks and no JVD GI normal to inspection, nondistended, normoactive bowel sounds, soft to palpation, non-tender and non-distended Extremity normal to inspection and no clubbing, cyanosis or edema Peripheral Pulses: Yes pulses 2+ throughout Neuro oriented x3, CN's II-XII intact bilaterally, moves all extremities and no focal motor deficits Neuro Narrative: Mild generalized weakness, interaction or appropriate and speeded responses no normal Sensorium / Orientation: awake and alert Assessment & Plan Assessment/Plan (1) COVID-19: (2) Acute respiratory failure with hypoxia: (3) Dehydration: (4) Declining functional status: (5) Delirium: (6) Hyponatremia: PLAN: Acute hypoxic respiratory failure secondary to COVID-19 -Patient remains on 2 L nasal cannula with an SPO2 of 94 to 96% -Patient oxygen saturation only 89% with 3 L nasal cannula -Plan for discharge on Monday to skilled facility at [facility] as long as the patient remained stable -Decadron day 3 of 10 -remdesivir day 3 of 5 -Continue I-S/Pep therapy--> compliance strongly encouraged today with patient -Mobilization as able -Prone lying as able -Continue to monitor closely for decompensation -Patient has been vaccinated and boosted however he is immunocompromised secondary to treatment with Ocrevus for MS which she takes every 6 months and took that shortly before his booster shot Delirium/declining functional status -Much improved and seems close to baseline -Suspect related to acute COVID-19 infection -PT/OT following -Was performed to rule out any acute exacerbation of MS and no new lesions found Multiple sclerosis -Patient on Dr. Gerard at baseline -MRI was performed given confusion and weakness and showed no evidence of active demyelination but chronic plaques are noted and there were no other acute findings BPH -Continue Flomax Hypertension -Continue HCTZ/losartan Depression -Continue Prozac -Watch sodium closely ELEANOR -Patient's brought CPAP in last evening -Order placed for use DVT prophylaxis -40 mg Lovenox daily CODE STATUS -Full code verified on admission With minimal change in clinical status today would still feel more comfortable if he be discharged tomorrow however, [facility]. We will plan for discharge to [facility] at that time. was updated by home health care case manager with regards to plan of care Charges/Coding Visit Charges Inpatient E&M: 19094 Subs Hosp L2
[2021-05-07] MEDS: 0.9% Saline Lock 10 ML Syringe IV (21:12)
[2021-05-08 02:37] VITALS: BP 129/62; PULSE 52; RESP 16; TEMP 36.6; O2SAT 94
[2021-05-08 08:36] LABS: Hematocrit 41.7 % (40-54); Hemoglobin 13.7 g/dL (13.0-16.5); Mean Corp Hgb Conc 32.9 g/dL (32-36); Mean Corpuscular Hgb 28.1 pg (27.0-32.0); Mean Corpuscular Volume 85.5 fL (80-94); Mean Platelet Vol. 10.8 fl (6.2-12.0); Platelet Count 296 K/mm3 (150-450); RBC Distribution Width CV 12.8 % (11.6-14.6); RBC Distribution Width SD 40.2 fl (35.1-43.9); Red Blood Count 4.88 M/mm3 (4.6-6.2); White Blood Count 6.1 K/mm3 (4.4-11.0)
[2021-05-08 08:37] VITALS: BP 138/57; PULSE 70; RESP 18; TEMP 36.7; O2SAT 95
[2021-05-08 08:58] LABS: ALB/GLOB Ratio 0.8 RATIO (0.9-2.4); AST(SGOT) 24 U/L (15-37); Alanine Aminotransfer ALT/SGPT 30 U/L (16-61); Alkaline Phosphatase 51 U/L (45-117); Anion Gap 7 (5-15); BUN 26 mg/dL (7-18); BUN/Creat Ratio 25.7 RATIO (10-20); Calcium,Total 10.5 mg/dL (8.5-10.1); Chloride 108 mmol/L (98-107); Creatinine, Serum 1.01 mg/dL (0.70-1.30); EST Glomerular Filtration Rate 78 mL/min (>60); Est Glom Filt Rate - Afr Amer 94 mL/min (>60); Estimated Creatinine Clearance 71.27 ml/min; Globulin 3.7 g/dL (2.2-4.2); Glucose 89 mg/dL (74-106); Potassium 3.4 mmol/L (3.5-5.1); Protein, Total 6.7 g/dL (6.4-8.2); Sodium Level 142 mmol/L (136-145)
[2021-05-08] MEDS: hydroCHLOROthiazide 12.5mg 12.5 MG PO (10:31)
[2021-05-08] MEDS: FLUoxetine 20 MG Capsule PO (10:31)
[2021-05-08] MEDS: Tamsulosin HCl 0.4 MG Capsule PO (10:31)
[2021-05-08] MEDS: Losartan Potassium 100 MG Tablet PO (10:31)
[2021-05-08] MEDS: Enoxaparin 40 MG/0.4 ML Syringe SC (10:31)
[2021-05-08] MEDS: dexAMETHasone 4 MG Tablet 6 MG PO (10:31)
[2021-05-08 11:56] VITALS: O2SAT 95
[2021-05-08 12:07] VITALS: O2SAT 94
[2021-05-08 14:53] VITALS: BP 119/65; PULSE 74; RESP 18; TEMP 36.6; O2SAT 93
--- NOTE | 2021-05-08 16:17 | PCM.PN.HOSP ---
Subjective Subjective Patient continues to remain stable. He is remains on 2 L nasal cannula with oxygen saturations in the mid 90s. I do anticipate that with ambulation he may need 3 L. We will retest this on day of discharge which is Monday. He has no complaints at this time other than he is not really fond of having go somewhere for rehab and would prefer to go home. I did discuss that his really would like him to go get stronger before she has some come home as there is concerned about his her capability and helping him with his weakness as it is. Objective Data Objective Data Vital Signs: Vital Signs Temp Pulse Resp BP Pulse Ox 97.9 F 74 18 119/65 93 05/08/21 14:53 05/08/21 14:53 05/08/21 14:53 05/08/21 14:53 05/08/21 14:53 Oxygen Flow Rate (L/min) [ 3 AMBULATING with Oxygen #2] Oxygen Flow Rate (L/min) [ 2 AMBULATING with Oxygen #1] Oxygen Flow Rate (L/min) [At 2 REST with Oxygen] Oxygen Flow Rate (L/min) [At 0 REST on Room Air] Oxygen Flow Rate (L/min) 2 Oxygen Delivery Method Room Air Weight: 104.281 kg Body Mass Index (BMI) 33.0 Intake & Output: Intake and Output for Last 24 Hours 05/06/21 05/07/21 05/08/21 23:59 23:59 23:59 Intake Total 1650 / 1650 1250 / 1500 420 / 420 Output Total 0 / 250 1000 / 1400 850 / 850 Balance 1650 / 1400 250 / 100 -430 / -430 Lab / Micro Data Result Diagrams: 05/08/21 08:19 05/08/21 08:19 Labs: Laboratory Results - last 24 hr 05/08/21 08:19: WBC 6.1, RBC 4.88, Hgb 13.7, Hct 41.7, MCV 85.5, MCH 28.1, MCHC 32.9, RDW Std Deviation 40.2, RDW Coeff of Earlene 12.8, Plt Count 296, MPV 10.8 05/08/21 08:19: Sodium 142, Potassium 3.4 L, Chloride 108 H, Carbon Dioxide 27.0, Anion Gap 7, BUN 26 H, Creatinine 1.01, Estim Creat Clear Calc 71.27, Est GFR (MDRD) Af Amer 94, Est GFR (MDRD) Non-Af 78, BUN/Creatinine Ratio 25.7 H, Glucose 89, Calcium 10.5 H, Total Bilirubin 0.50, AST 24, ALT 30, Alkaline Phosphatase 51, Total Protein 6.7, Albumin 3.0 L, Globulin 3.7, Albumin/Globulin Ratio 0.8 L Micro: Microbiology 05/04/21 13:33 Blood Culture (Wb) - Anticubital Right Blood Culture - Preliminary 05/04/21 14:20 Blood Culture (Wb) - Right Hand Blood Culture - Preliminary No growth in 48 hours. 05/04/21 13:20 Nasal Secretion SARS-CoV-2 Antigen (Rapid) - Final SARS-CoV-2 (COVID 19) Physical Exam Const alert, oriented x3, no apparent distress and well nourished Constitutional Narrative: Obese upper middle-aged white male sitting up in a chair at the bedside, appears comfortable, nontoxic, mentation appears close to baseline, responses are a bit slow at times Orientation / Consciousness: confused and disoriented Exam Limitations: no limitations Nutritional Appearance: obese HEENT normocephalic, head/scalp atraumatic, moist oral mucous membranes and oropharynx normal HEENT Narrative: No thrush Head and Scalp: normocephalic Eyes Eyes Narrative: No scleral icterus Neck Neck Narrative: No thyromegaly Resp normal respiratory effort, no retractions, no use of accessory muscles and clear to auscultation bilaterally Resp Narrative: Diffusely diminished but clear Auscultation: crackles; Negative for rales, rhonchi or wheezes Cardio regular rate, regular rhythm, S1 normal heart sound, S2 normal heart sound, no murmurs, no rub, no gallops, no clicks and no JVD GI normal to inspection, nondistended, normoactive bowel sounds, soft to palpation, non-tender and non-distended Extremity normal to inspection and no clubbing, cyanosis or edema Peripheral Pulses: Yes pulses 2+ throughout Neuro moves all extremities and no focal motor deficits Neuro Narrative: Mild generalized weakness Sensorium / Orientation: awake and alert Assessment & Plan Assessment/Plan (1) COVID-19: (2) Acute respiratory failure with hypoxia: (3) Dehydration: (4) Declining functional status: (5) Delirium: (6) Hyponatremia: (7) Gram-negative bacteremia: PLAN: Acute hypoxic respiratory failure secondary to COVID-19 -Patient remains on 2 L nasal cannula with an SPO2 of 93 to 95% -Patient oxygen saturation only 89% with 3 L nasal cannula on 05/07/2021 -Plan for discharge on Monday to skilled facility at [facility] as long as the patient remained stable -Decadron day 4 of 10 -remdesivir day 4 of 5 -Continue I-S/Pep therapy--> compliance strongly encouraged today with patient -Mobilization as able -Prone lying as able -Continue to monitor closely for decompensation -Patient has been vaccinated and boosted however he is immunocompromised secondary to treatment with Ranjitus for MS which she takes every 6 months and took that shortly before his booster shot Gram-negative bacteremia -1 of 2 blood cultures positive -Gram-negative is never contaminant however I am somewhat confused as he has not been treated with antimicrobials, does not have an elevated white count, has not been febrile, and source is unclear and is clinically much improved since admission -Ceftriaxone daily started after repeat blood cultures were obtained -If repeat blood cultures are negative we could consider not discharging him is on antibiotics as he has not been treated with antimicrobials prior to those cultures being drawn -Would await for finalization at at least 48 hours and make the decision prior to discharge -If we do treat I would complete treatment with a 7-day course -Oral should be fine Hypokalemia -40 mEq p.o. potassium -Repeat BMP in a.m. Hypercalcemia -He has been mildly elevated since admission -This may be related to his HCTZ use -PTH is within normal limits and not elevated -Vitamin D level is within normal limits -Would recommend following as an outpatient and work-up further if progresses otherwise I suspect this is most likely related to HCTZ Delirium/declining functional status -Much improved and seems close to baseline -Suspect related to acute COVID-19 infection -PT/OT following -Was performed to rule out any acute exacerbation of MS and no new lesions found Multiple sclerosis -Patient on Dr. Gerard at baseline -MRI was performed given confusion and weakness and showed no evidence of active demyelination but chronic plaques are noted and there were no other acute findings BPH -Continue Flomax Hypertension -Continue HCTZ/losartan Depression -Continue Prozac -Watch sodium closely ELEANOR -Patient's brought CPAP in last evening -Order placed for use DVT prophylaxis -40 mg Lovenox daily CODE STATUS -Full code verified on admission With minimal change in clinical status today would still feel more comfortable if he be discharged tomorrow however, unfortunately, [facility] is unable to take him till Monday. We will plan for discharge to [facility] at that time. was updated by casey saw operator with regards to plan of care Charges/Coding Visit Charges Inpatient E&M: 35651 Subs Hosp L2
[2021-05-08] MEDS: Loperamide 2 MG Capsule PO (17:42)
[2021-05-08] MEDS: Potassium Chloride Oral Tablet 20 MEQ 40 MEQ PO (17:42)
[2021-05-08 20:40] VITALS: BP 149/90; PULSE 59; RESP 18; TEMP 36.6; O2SAT 94
[2021-05-08] MEDS: 0.9% Saline Lock 10 ML Syringe IV (20:42)
[2021-05-09 02:01] VITALS: BP 141/91; PULSE 79; RESP 18; TEMP 36.6; O2SAT 95
[2021-05-09 07:03] LABS: Hematocrit 40.6 % (40-54); Hemoglobin 13.5 g/dL (13.0-16.5); Mean Corp Hgb Conc 33.3 g/dL (32-36); Mean Corpuscular Hgb 28.8 pg (27.0-32.0); Mean Corpuscular Volume 86.6 fL (80-94); Mean Platelet Vol. 10.7 fl (6.2-12.0); Platelet Count 288 K/mm3 (150-450); Red Blood Count 4.69 M/mm3 (4.6-6.2)
[2021-05-09 07:29] LABS: ALB/GLOB Ratio 0.8 RATIO (0.9-2.4); AST(SGOT) 22 U/L (15-37); Alanine Aminotransfer ALT/SGPT 30 U/L (16-61); Albumin, Serum 2.8 g/dL (3.2-5.0); Alkaline Phosphatase 47 U/L (45-117); Anion Gap 6 (5-15); BUN 23 mg/dL (7-18); BUN/Creat Ratio 22.8 RATIO (10-20); Calcium,Total 10.2 mg/dL (8.5-10.1); Chloride 108 mmol/L (98-107); Creatinine, Serum 1.01 mg/dL (0.70-1.30); EST Glomerular Filtration Rate 78 mL/min (>60); Est Glom Filt Rate - Afr Amer 94 mL/min (>60); Estimated Creatinine Clearance 71.27 ml/min; Globulin 3.4 g/dL (2.2-4.2); Glucose 97 mg/dL (74-106); Potassium 3.9 mmol/L (3.5-5.1); Protein, Total 6.2 g/dL (6.4-8.2); Sodium Level 141 mmol/L (136-145)
[2021-05-09 08:57] VITALS: O2SAT 95
[2021-05-09 09:17] VITALS: BP 143/59; PULSE 67; RESP 20; TEMP 37; O2SAT 96
[2021-05-09] MEDS: dexAMETHasone 4 MG Tablet 6 MG PO (09:20)
[2021-05-09] MEDS: FLUoxetine 20 MG Capsule PO (09:21)
[2021-05-09] MEDS: Losartan Potassium 100 MG Tablet PO (09:21)
[2021-05-09] MEDS: hydroCHLOROthiazide 12.5mg 12.5 MG PO (09:21)
[2021-05-09] MEDS: Enoxaparin 40 MG/0.4 ML Syringe SC (09:21)
[2021-05-09] MEDS: Tamsulosin HCl 0.4 MG Capsule PO (09:21)
[2021-05-09] MEDS: 0.9% Saline Lock 10 ML Syringe IV ×2 (09:22→21:00)
[2021-05-09 14:37] VITALS: BP 134/72; PULSE 65; RESP 20; TEMP 36.6; O2SAT 96
--- NOTE | 2021-05-09 14:42 | PCM.PN.HOSP ---
Subjective Subjective Patient states he is feeling fine. He is a bit frustrated that he has to go for rehab prior to going home but he states he understands. He asked me to help him turn his spot a file and so he can listen to some music. He has no complaints at this time. He states his diarrhea has been better. Objective Data Objective Data Vital Signs: Vital Signs Temp Pulse Resp BP Pulse Ox 97.9 F 65 20 H 134/72 H 96 05/09/21 14:37 05/09/21 14:37 05/09/21 14:37 05/09/21 14:37 05/09/21 14:37 Oxygen Flow Rate (L/min) [ 3 AMBULATING with Oxygen #2] Oxygen Flow Rate (L/min) [ 2 AMBULATING with Oxygen #1] Oxygen Flow Rate (L/min) [At 2 REST with Oxygen] Oxygen Flow Rate (L/min) [At 0 REST on Room Air] Oxygen Flow Rate (L/min) 2 Oxygen Delivery Method Room Air Weight: 104.281 kg Body Mass Index (BMI) 33.0 Intake & Output: Intake and Output for Last 24 Hours 05/07/21 05/08/21 05/09/21 23:59 23:59 23:59 Intake Total 1250 / 1500 670 / 670 50 / 50 Output Total 1000 / 1400 1100 / 1100 275 / 275 Balance 250 / 100 -430 / -430 -225 / -225 Lab / Micro Data Result Diagrams: 05/09/21 05:52 05/09/21 05:52 Labs: Laboratory Results - last 24 hr 05/09/21 05:52: WBC 6.0, RBC 4.69, Hgb 13.5, Hct 40.6, MCV 86.6, MCH 28.8, MCHC 33.3, RDW Std Deviation 41.0, RDW Coeff of Earlene 13.0, Plt Count 288, MPV 10.7 05/09/21 05:52: Sodium 141, Potassium 3.9, Chloride 108 H, Carbon Dioxide 27.0, Anion Gap 6, BUN 23 H, Creatinine 1.01, Estim Creat Clear Calc 71.27, Est GFR (MDRD) Af Amer 94, Est GFR (MDRD) Non-Af 78, BUN/Creatinine Ratio 22.8 H, Glucose 97, Calcium 10.2 H, Total Bilirubin 0.40, AST 22, ALT 30, Alkaline Phosphatase 47, Total Protein 6.2 L, Albumin 2.8 L, Globulin 3.4, Albumin/Globulin Ratio 0.8 L Micro: Microbiology 05/04/21 13:33 Blood Culture (Wb) - Anticubital Right Blood Culture - Preliminary 05/04/21 14:20 Blood Culture (Wb) - Right Hand Blood Culture - Preliminary No growth in 48 hours. 05/04/21 13:20 Nasal Secretion SARS-CoV-2 Antigen (Rapid) - Final SARS-CoV-2 (COVID 19) Physical Exam Const alert, oriented x3, no apparent distress and well nourished Constitutional Narrative: Obese upper middle-aged white male sitting up in a chair at the bedside, appears comfortable, nontoxic, mentation appears close to baseline, responses are a bit slow at times Orientation / Consciousness: confused and disoriented Exam Limitations: no limitations Nutritional Appearance: obese HEENT normocephalic, head/scalp atraumatic, moist oral mucous membranes and oropharynx normal Head and Scalp: normocephalic Resp normal respiratory effort, no retractions, no use of accessory muscles and clear to auscultation bilaterally Resp Narrative: Diffusely diminished but clear Auscultation: crackles; Negative for rales, rhonchi or wheezes Cardio regular rate, regular rhythm, S1 normal heart sound, S2 normal heart sound, no murmurs, no rub, no gallops, no clicks and no JVD GI normal to inspection, nondistended, normoactive bowel sounds, soft to palpation, non-tender and non-distended Extremity normal to inspection and no clubbing, cyanosis or edema Skin no rashes or lesions noted and no wounds Neuro moves all extremities and no focal motor deficits Neuro Narrative: Mild generalized weakness Sensorium / Orientation: awake and alert Speech: speech normal Assessment & Plan Assessment/Plan (1) COVID-19: (2) Acute respiratory failure with hypoxia: (3) Dehydration: (4) Declining functional status: (5) Delirium: (6) Hyponatremia: (7) Gram-negative bacteremia: PLAN: Acute hypoxic respiratory failure secondary to COVID-19 -Patient has been weaned to room air at rest with an oxygen saturation of 96% -Will need tested with ambulation prior to discharge tomorrow -Plan for discharge on Monday to skilled facility at [facility] as long as the patient remained stable -Decadron day 5 of 10 -remdesivir day 5 of 5 -Continue I-S/Pep therapy--> compliance strongly encouraged today with patient -Mobilization as able -Patient has been vaccinated and boosted however he is immunocompromised secondary to treatment with Ocrevus for MS which she takes every 6 months and took that shortly before his booster shot Gram-negative bacteremia -1 of 2 blood cultures positive -Defecation is still pending -Gram-negative is never contaminant however I am somewhat confused as he has not been treated with antimicrobials, does not have an elevated white count, has not been febrile, and source is unclear and is clinically much improved since admission -Continue ceftriaxone which was initiated after repeat blood cultures were obtained -Brayan blood cultures from 05/08/2021 have not resulted as of yet -Would await for finalization at at least 48 hours and make the decision prior to discharge -If we do treat I would complete treatment with a 7-day course -Oral should be fine Hypokalemia - resolved Hypercalcemia -He has been mildly elevated since admission -This may be related to his HCTZ use -PTH is within normal limits and not elevated -Vitamin D level is within normal limits -Would recommend following as an outpatient and work-up further if progresses otherwise I suspect this is most likely related to HCTZ Delirium/declining functional status -Much improved and seems close to baseline -Suspect related to acute COVID-19 infection -PT/OT following -Was performed to rule out any acute exacerbation of MS and no new lesions found Multiple sclerosis -Patient on Dr. Gerard at baseline -MRI was performed given confusion and weakness and showed no evidence of active demyelination but chronic plaques are noted and there were no other acute findings BPH -Continue Flomax Hypertension -Continue HCTZ/losartan Depression -Continue Prozac -Watch sodium closely ELEANOR -Patient's brought CPAP in last evening -Order placed for use DVT prophylaxis -40 mg Lovenox daily CODE STATUS -Full code verified on admission was updated today with regards to clinical status and plan of care. She is meeting with [facility] tomorrow at 10 AM to sign paperwork. Understands that discharge will likely occur tomorrow. Charges/Coding Visit Charges Inpatient E&M: 20086 Subs Hosp L2
--- NOTE | 2021-05-09 15:51 | NURSING ---
Aware of Vital Signs taken by Sophai Adan RN
[2021-05-09 20:38] VITALS: BP 123/70; PULSE 68; RESP 18; TEMP 36.8; O2SAT 94
[2021-05-10 02:10] VITALS: BP 141/67; PULSE 74; RESP 18; TEMP 36.6; O2SAT 94
[2021-05-10 05:51] VITALS: O2SAT 93; O2SAT 94
[2021-05-10 06:55] LABS: Hematocrit 44.9 % (40-54); Hemoglobin 14.7 g/dL (13.0-16.5); Mean Corp Hgb Conc 32.7 g/dL (32-36); Mean Corpuscular Hgb 28.3 pg (27.0-32.0); Mean Corpuscular Volume 86.3 fL (80-94); Mean Platelet Vol. 10.4 fl (6.2-12.0); Platelet Count 359 K/mm3 (150-450); RBC Distribution Width SD 40.9 fl (35.1-43.9); White Blood Count 6.9 K/mm3 (4.4-11.0)
[2021-05-10 07:14] LABS: ALB/GLOB Ratio 0.8 RATIO (0.9-2.4); AST(SGOT) 23 U/L (15-37); Alanine Aminotransfer ALT/SGPT 39 U/L (16-61); Albumin, Serum 3.2 g/dL (3.2-5.0); Alkaline Phosphatase 57 U/L (45-117); Anion Gap 8 (5-15); BUN 25 mg/dL (7-18); BUN/Creat Ratio 20.8 RATIO (10-20); Calcium,Total 10.4 mg/dL (8.5-10.1); Chloride 106 mmol/L (98-107); EST Glomerular Filtration Rate 64 mL/min (>60); Est Glom Filt Rate - Afr Amer 77 mL/min (>60); Estimated Creatinine Clearance 59.99 ml/min; Globulin 3.9 g/dL (2.2-4.2); Glucose 94 mg/dL (74-106); Potassium 3.6 mmol/L (3.5-5.1); Protein, Total 7.1 g/dL (6.4-8.2); Sodium Level 143 mmol/L (136-145)
[2021-05-10 07:30] VITALS: O2SAT 93
[2021-05-10 09:23] VITALS: BP 124/69; PULSE 77; RESP 18; TEMP 36.6; O2SAT 96
[2021-05-10] MEDS: Losartan Potassium 100 MG Tablet PO (09:40)
[2021-05-10] MEDS: dexAMETHasone 4 MG Tablet 6 MG PO (09:40)
[2021-05-10] MEDS: Tamsulosin HCl 0.4 MG Capsule PO (09:41)
[2021-05-10] MEDS: 0.9% Saline Lock 10 ML Syringe IV (09:41)
[2021-05-10] MEDS: FLUoxetine 20 MG Capsule PO (09:41)
[2021-05-10] MEDS: hydroCHLOROthiazide 12.5mg 12.5 MG PO (09:41)
[2021-05-10] MEDS: Enoxaparin 40 MG/0.4 ML Syringe SC (09:42)
--- NOTE | 2021-05-10 10:10 | DS.PCM_ITS ---
Providers Date of Admission: 05/04/21 Primary Care Physician: Mirtha Primary Care Phys Reason For Visit: COVID 19. DEBILITY Diagnosis Discharge Diagnosis (1) COVID-19: Status: Acute Code(s): U07.1 - COVID-19 (2) Acute respiratory failure with hypoxia: Status: Acute Code(s): J96.01 - Acute respiratory failure with hypoxia (3) Dehydration: Status: Acute Code(s): E86.0 - Dehydration (4) Declining functional status: Status: Acute Code(s): R53.81 - Other malaise (5) Delirium: Status: Acute Code(s): R41.0 - Disorientation, unspecified (6) Hyponatremia: Status: Acute Code(s): E87.1 - Hypo-osmolality and hyponatremia (7) Gram-negative bacteremia: Status: Acute Code(s): R78.81 - Bacteremia Medications at Discharge Home Medications fluoxetine 20 mg PO DAILY 05/04/21 olmesartan-hydrochlorothiazide 1 tab PO DAILY 05/04/21 tamsulosin 0.4 mg PO DAILY 05/04/21 acetaminophen [Tylenol] 650 mg PO Q6H PRN PRN #0 tab 05/10/21 cefdinir 300 mg PO BID #10 cap 05/10/21 dexamethasone [Decadron] 6 mg PO DAILY #5 tab 05/10/21 loperamide 2 mg PO Q4H PRN PRN #0 cap 05/10/21 rivaroxaban [Xarelto] 10 mg PO DAILY #30 tab 05/10/21 Hospital Course Summary of Care Provided Minutes Spent on Discharge: 35 Hospital Course: Patient is a 71-year-old gentleman vaccinated against COVID-19 including receiving the booster presented with shortness of breath diagnosed with acute hypoxic respiratory failure 1. Acute hypoxic respiratoryFailure ? Secondary to COVID-19 pneumonia placed on oxygen and treated with Decadron as well as remdesivir 2. Physical deconditioning - Requested for PT OT eval and clinical social work therapist to assist with discharge planning 3. Multiple sclerosis on Ocrevus 4. Hypokalemia - for protocol 5. Gram-negative bacteremia -1 out of 2 bottles. Patient was treated with Rocephin prescription written for cefdinir on discharge 6. Hypertension - Blood pressure controlled, home medications continued with dose adjustment as needed 7. BPH ? Patient is on Flomax discontinued 8. DVT prophylaxis treated with Lovenox discharge on Xarelto for 30 days Physical Exam Narrative GENERAL: cooperative HEENT: Atraumatic; EYES; Anicteric, Normal Conjunctiva NECK; supple, normal thyroid, RESPIRATORY: Diminished to auscultation CARDIOVASCULAR: Regular S1 S2, GI: soft, normoactive bowel sounds, : No Renal angle tenderness; EXTREMITIES: No edema, no clubbing, MUSCULOSKELETAL: no muscle waisting NEURO: Awake; no lateralizing signs. SKIN: No Rash PSYCH; Flat affect Weight / BMI Weight Weight: 104.281 kg Body Mass Index (BMI) 33.0 ABG / Lab / Microbiology Data Result Diagrams: 05/10/21 06:00 05/10/21 06:00 Laboratory: Laboratory Results - last 24 hr 05/10/21 06:00: WBC 6.9, RBC 5.20, Hgb 14.7, Hct 44.9, MCV 86.3, MCH 28.3, MCHC 32.7, RDW Std Deviation 40.9, RDW Coeff of Earlene 13.0, Plt Count 359, MPV 10.4 05/10/21 06:00: Sodium 143, Potassium 3.6, Chloride 106, Carbon Dioxide 29.0, Anion Gap 8, BUN 25 H, Creatinine 1.20, Estim Creat Clear Calc 59.99, Est GFR (MDRD) Af Amer 77, Est GFR (MDRD) Non-Af 64, BUN/Creatinine Ratio 20.8 H, Glucose 94, Calcium 10.4 H, Total Bilirubin 0.40, AST 23, ALT 39, Alkaline Phosphatase 57, Total Protein 7.1, Albumin 3.2, Globulin 3.9, Albumin/Globulin R atio 0.8 L Microbiology: Microbiology 05/04/21 13:33 Blood Culture (Wb) - Anticubital Right Blood Culture - Final Roseomonas gilardii 05/04/21 14:20 Blood Culture (Wb) - Right Hand Blood Culture - Final No growth in 5 days. 05/04/21 13:20 Nasal Secretion SARS-CoV-2 Antigen (Rapid) - Final SARS-CoV-2 (COVID 19) Meaningful Use Info Meaningful Use Diagnoses (Choose all that apply): None applicable Discharge Plan Admission Admit Date/Time: 05/04/21 17:31 Attending Provider: Keegan Wood Primary Care Provider: Care Physician,No Primary Discharge Orders/Prescriptions Prescriptions: New cefdinir 300 mg capsule 300 mg PO BID Qty: 10 RF: 0 dexamethasone [Decadron] 6 mg tablet 6 mg PO DAILY Qty: 5 RF: 0 acetaminophen [Tylenol] 325 mg Tablet 650 mg PO Q6H PRN PRN (Reason: Pain Score 1-10/Temp > 100.7 F) Qty: 0 RF: 0 loperamide 2 mg Capsule 2 mg PO Q4H PRN PRN (Reason: Diarrhea) Qty: 0 RF: 0 Xarelto 10 mg tablet 10 mg PO DAILY Qty: 30 RF: 0 Continued tamsulosin 0.4 mg capsule 0.4 mg PO DAILY RF: 0 fluoxetine 20 mg tablet 20 mg PO DAILY RF: 0 olmesartan-hydrochlorothiazide 40-12.5 mg tablet 1 tab PO DAILY RF: 0 Referrals / Follow Up: Care Physician,No Primary [Primary Care Provider] - Disposition Disposition (needs filled in before D/C Order can be placed): [facility] Facility Charges/Coding Visit Charges Inpatient E&M: 49082 Disch Hosp
--- NOTE | 2021-05-10 10:12 | TREXTCAR_ITS ---
Diet 05/04/21 17:54 Diet: Regular - General Food consistency:: Regular Liquid Consistency:: Regular/Thin Type of Dietary Supplement:: Ensure Compact Diet Comments: w/ breakfast and dinner Routine Orders/Code Status Code Status: Full Code Wound(s) left knee: Wound Type: scabbed wound Therapies Physical Therapy: Eval and Treat Occupational Therapy: Eval and Treat Problem/Diagnosis (1) COVID-19: Status: Acute (2) Acute respiratory failure with hypoxia: Status: Acute (3) Dehydration: Status: Acute (4) Declining functional status: Status: Acute (5) Delirium: Status: Acute (6) Hyponatremia: Status: Acute (7) Gram-negative bacteremia: Status: Acute Allergies/Procedures Done in Hospital Allergies No Known Allergies Allergy (Verified 05/04/21 11:54) Type of Care/Length of Stay Estimated LOS: Convalescent Care Less Than 30 days Type of Care Needed: Skilled Rehab Potential: Good Prognosis: Good Additional Orders/Day of Discharge Day of Discharge: 05/10/21 Dietary and Speech Recommendations Dietitian Recommendations/Changes: continue regular diet as tolerated; ensure compact w/ breakfast and dinner for additional calories/protein if consumed. Discharge Plan Admission Admit Date/Time: 05/04/21 17:31 Attending Provider: Keegan Wood Primary Care Provider: Mirtha Mancera Primary Discharge Orders/Prescriptions Prescriptions: New cefdinir 300 mg capsule 300 mg PO BID Qty: 10 RF: 0 Continued tamsulosin 0.4 mg capsule 0.4 mg PO DAILY RF: 0 fluoxetine 20 mg tablet 20 mg PO DAILY RF: 0 olmesartan-hydrochlorothiazide 40-12.5 mg tablet 1 tab PO DAILY RF: 0 Referrals / Follow Up: Care Physician,Mirtha Primary [Primary Care Provider] - Disposition Disposition (needs filled in before D/C Order can be placed): Longterm Facility
--- NOTE | 2021-05-10 11:18 | CASEMGMT ---
Social Work Pt is ready for discharge to [facility] today. SW completed hospital exemption in the [facility] system. SW faxed this along with all discharge paperwork to [facility]. ISELA set up a 1:00pm transport time. ISELA let Sheela at [facility], bedside RN, and pt's know time of pickup. RN let pt know time. SW did let know to anticipate a bill for transport. states understanding. She also asked SW to fax pt's secondary insurance card to [facility], SW faxed it. emailed pt's Living Will, put a copy on the chart and in the envelope for the fdc. No further needs, pt to [facility], convalescent stay, skilled level of care. GRACE Dawson
--- NOTE | 2021-05-10 12:15 | PHA.DC.MR ---
Pharmacy Service has performed discharge medication reconciliation for this patient. The patient's discharge medication list was reviewed for discrepancies and discrepancies were resolved. Home Medications fluoxetine 20 mg PO DAILY 05/04/21 olmesartan-hydrochlorothiazide 1 tab PO DAILY 05/04/21 tamsulosin 0.4 mg PO DAILY 05/04/21 acetaminophen [Tylenol] 650 mg PO Q6H PRN PRN #0 tab 05/10/21 cefdinir 300 mg PO BID #10 cap 05/10/21 dexamethasone [Decadron] 6 mg PO DAILY #5 tab 05/10/21 loperamide 2 mg PO Q4H PRN PRN #0 cap 05/10/21 rivaroxaban [Xarelto] 10 mg PO DAILY #30 tab 05/10/21
--- NOTE | 2021-05-13 12:41 | CASEMGMT ---
Addendum entered by Beatriz Acosta 05/13/21 14:07: Social Work SW received a call back from pt's insurance company, [employer]. They state they do not cover transport to residential facilities. SW asked them to call the . They state will put a note in the chart to let the know if she calls in. SW called Brea to let her know what the insurance company said. GRACE Dawson Original Note: Social Work called SW, inquiring about transport. She states that pt has emergency transport coverage and was hoping the pt's transport would be covered by this company for pt's transport from here to [facility]. states that an ambulance took pt. SW called [facility] to verify, this SW set up a wheelchair van but an ambulance was sent as there were no vans available. SW was able to write a letter stating the necessity of pt going via transport to the [facility] rather than a family car, and faxed it to the pt's insurance company for them. aware. No further needs anticipated. GRACE Dawson
== END 2021-05-10 13:12 | DRG 177 ==
LOC: ED 16:23 → MS3 18:00
PROVIDERS: Internal Medicine; Emergency Provider Emergency Medicine; Visit Provider Internal Medicine
DX: U07.1 COVID-19 (principal); J96.01 Acute respiratory failure with hypoxia; E87.1 Hypo-osmolality and hyponatremia; G35 Multiple sclerosis; E87.6 Hypokalemia; E83.52 Hypercalcemia; I10 Essential (primary) hypertension; E86.0 Dehydration; G47.33 Obstructive sleep apnea (adult) (pediatric); N40.0 Benign prostatic hyperplasia without lower urinary tract symptoms; Z87.891 Personal history of nicotine dependence; F32.A Depression, unspecified; Z79.899 Other long term (current) drug therapy
CPT/HCPCS: 36415; 70450; 70553; 71045; 80053; 81001; 82306; 83605; 83970; 84484; 85025; 85027; 87040; 87077; 87426; 93005; 94667; 94668; 94762; 97110; 97163; 97166; 97530; 97535; 99251; 99285; A9575; J7030; J7050; A4216; G0463; J0248; J0696